=== PATIENT | male | born 2000 | race Caucasian/White ===

== ENCOUNTER → 2023-04-29 15:28 | Outpatient (BNVA) | payer BC, SELFPAY | PROVIDERS: PCP Pediatrics; Visit Provider Registered Nurse | DX: Z79.899 Other long term (current) drug therapy (principal); G47.00 Insomnia, unspecified; F33.2 Major depressive disorder, recurrent severe without psychotic features; F41.1 Generalized anxiety disorder; F84.0 Autistic disorder | CPT/HCPCS: 80053; 80061; 82306; 82607; 83036; 83540; 84443; 85025 ==